=== PATIENT | male | born 1975 | race Caucasian/White ===

== ENCOUNTER 2017-07-22 16:55 | Emergency (ER) | payer OTHER ==
[~2017-07-22] VITALS: Ht 180.3 cm; Wt 77.0 kg
[2017-07-22 16:56] VITALS: BP 158/81; PULSE 102; RESP 14; TEMP 97.6; O2SAT 98
[2017-07-22] MEDS ORDERED: CEPH-460 PO (17:11)
[2017-07-22] MEDS ORDERED: BACT800T5 PO (17:11)
[2017-07-22] MEDS ORDERED: IBUP800T23 PO (17:11)
[2017-07-22] MEDS ORDERED: SILV1CRE20 TOPICAL (17:11)
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
[2017-07-22] MEDS ORDERED: ACETAMINOPHEN/HYDROcodone 325 MG/5 MG TAB PO ONE (17:15)
[2017-07-22] MEDS ORDERED: SILVER SULFADIAZINE 1% CR 50 GM JAR TOPICAL ONE (17:15)
== END 2017-07-22 17:35 | disposition home or self-care (01) ==
LOC: NEPK 16:55
DX: T25.221A Burn of second degree of right foot, initial encounter (principal); L03.115 Cellulitis of right lower limb; X18.XXXA Contact with other hot metals, initial encounter; Y93.89 Activity, other specified
CPT/HCPCS: 16020